=== PATIENT | male | born 1990 | race Caucasian/White ===

== ENCOUNTER 2018-10-02 04:00 | Emergency (ER) | payer BC ==
[2018-10-02 04:24] VITALS: BP 116/65; PULSE 81; TEMP 98.5; BMI 30.9
[2018-10-02] MEDS ORDERED: MAG HYDROX/AL HYDROX/SIMETH 30 ML UNIT-DOSE CUP PO ONE (05:09)
[2018-10-02] MEDS ORDERED: ONDANSETRON *ODT* 4 MG TABLET SL ONE (05:09)
[2018-10-02] MEDS ORDERED: ONDANSETRON *ODT* 4 MG TABLET ONE (05:11)
--- NOTE | 2018-10-02 05:11 | PDOC ---
Attending Attestation - Resident Resident Name: Papito Baeza - ED Attending Attestation I have performed the following: The case was reviewed & discussed with the resident, I agree w/resident's findings & plan - HPI HPI: 10/02/18 06:01 27-year-old male with epigastric burning, currently with an outpatient appointment for endoscopy with GI 10/02/18 06:01 - Physicial Exam PE: 10/02/18 06:02 Patient eloped prior to physical exam - Medical Decision Making 10/02/18 06:02 27-year-old male with epigastric burning and pain Labs are unremarkable Patient eloped prior to my [id number] evaluation, he did not announce leading to staff
[2018-10-02] MEDS ORDERED: MAG HYDROX/AL HYDROX/SIMETH 30 ML UNIT-DOSE CUP ONE (05:12)
[2018-10-02 05:18] LABS: HEMATOCRIT 44.9 % (35.4-49); HEMOGLOBIN 15.3 GM/dL (11.7-16.9); MCH 30.4 pg (25.7-33.7); MEAN CELL VOLUME 89.3 fl (80-96); MEAN PLT VOLUME 8.8 fl (7.5-11.1); PLATELET COUNT 179 K/MM3 (134-434); RBC 5.02 M/mm3 (4.00-5.60); RDW 12.3 % (11.9-15.9)
--- NOTE | 2018-10-02 05:31 | PDOC ---
History of Present Illness - General Chief Complaint: Chest Pain Stated Complaint: CHEST PAIN,SHORTNESS OF BREATH, Time Seen by Provider: 10/02/18 05:00 History Source: Patient Exam Limitations: No Limitations - History of Present Illness Initial Comments: 10/02/18 05:31 Patient is a 27M with history of appendectomy here today complaining of a burning pain to his chest for the past two weeks. Patient complains of an associated nausea. Denies shortness of breath. Denies fevers, chills, vomiting. Denies diarrhea, constipation. Patient is followed up by outpatient GI. Has tried diet changes, zantac, 2 days of prilosec. Has outpatient endoscopy already scheduled. Denies NSAIDs, alcohol, smoking. Past History - Past Medical History Allergies/Adverse Reactions: Allergies Allergy/AdvReac Type Severity Reaction Status Date / Time Sulfa (Sulfonamide Allergy Verified 10/02/18 04:16 Antibiotics) Home Medications: Ambulatory Orders NK [No Known Home Medication] 11/15/14 COPD: No - Surgical History Appendectomy: Yes - Immunization History Immunization Up to Date: Yes - Suicide/Smoking/Psychosocial Hx Smoking History: Never smoked Have you smoked in the past 12 months: No If you are a former smoker, when did you quit?: 2 weeks ago Information on smoking cessation initiated: No Hx Alcohol Use: No Drug/Substance Use Hx: No Substance Use Type: None Review of Systems - Review of Systems Able to Perform ROS?: Yes Comments:: 10/02/18 05:54 GENERAL/CONSTITUTIONAL: No fever or chills. No weakness. HEAD, EYES, EARS, NOSE AND THROAT: No change in vision. No sore throat. CARDIOVASCULAR: +chest pain no shortness of breath RESPIRATORY: No cough, wheezing, or hemoptysis. GASTROINTESTINAL: +nausea, no vomiting, diarrhea or constipation. GENITOURINARY: No dysuria, frequency, or change in urination. MUSCULOSKELETAL: No joint or muscle swelling or pain. No neck or back pain. SKIN: No rash NEUROLOGIC: No headache, vertigo, loss of consciousness, or change in strength/ sensation. ALLERGIC/IMMUNOLOGIC: No hives or skin allergy. *Physical Exam - Vital Signs Last Vital Signs Temp Pulse Resp BP Pulse Ox 98.5 F 81 20 116/65 99 10/02/18 04:17 10/02/18 04:17 10/02/18 04:17 10/02/18 04:17 10/02/18 04:17 - Physical Exam Comments: 10/02/18 05:55 GENERAL: Awake, alert, and fully oriented, in no acute distress HEAD: No signs of trauma, normocephalic, atraumatic EYES: PERRLA, EOMI, sclera anicteric, conjunctiva clear ENT: Auricles normal inspection, hearing grossly normal, nares patent, oropharynx clear without exudates. Moist mucosa NECK: Normal ROM, supple, no lymphadenopathy, JVD, or masses LUNGS: No distress, speaks full sentences, clear to auscultation bilaterally HEART: Regular rate and rhythm, normal S1 and S2, no murmurs, rubs or gallops, peripheral pulses normal and equal bilaterally. ABDOMEN: Soft, nontender, normoactive bowel sounds. No guarding, no rebound. No masses EXTREMITIES: Normal inspection, Normal range of motion, no edema. No clubbing or cyanosis. NEUROLOGICAL: Cranial nerves II through XII grossly intact. Normal speech, normal gait, no focal sensorimotor deficits SKIN: Warm, Dry, normal turgor, no rashes or lesions noted. ED Treatment Course - LABORATORY CBC & Chemistry Diagram: 10/02/18 05:14 10/02/18 05:14 - ADDITIONAL ORDERS Additional order review: 10/02/18 05:14 RBC 5.02 MCV 89.3 MCHC 34.0 RDW 12.3 MPV 8.8 - Medications Given in the ED: ED Medications Discontinued Medications Generic Name Dose Route Start Last Admin Trade Name Freq PRN Reason Stop Dose Admin Al Hydroxide/Mg Hydroxide 30 ml 10/02/18 05:09 10/02/18 05:14 Mylanta Oral Suspension - PO 10/02/18 05:10 30 ml ONCE ONE Administration Ondansetron HCl 8 mg 10/02/18 05:09 10/02/18 05:14 Zofran Odt - SL 10/02/18 05:10 8 mg ONCE ONE Administration Medical Decision Making - Medical Decision Making 10/02/18 05:55 Patient is 27M with no significant medical history here today with pain consistent with GERD. Vitals normal and stable. Nontender exam. Has appropriate follow up already. Basic labs drawn. Will treat with maalox and zofran. Labs normal. EKG shows NSR, no st elevations/depressions. Normal axis. Normal intervals. No significant t wave abnormalities. Patient eloped before reassessment. 10/02/18 06:01 *DC/Admit/Observation/Transfer Diagnosis at time of Disposition: GERD (gastroesophageal reflux disease) - Discharge Dispostion Disposition: ELOPED Condition at time of disposition: Stable Decision to Admit order: No - Referrals - Patient Instructions - Post Discharge Activity
[2018-10-02 05:47] LABS: ALK PHOS 48 U/L (45-117); ANION GAP 9 MMOL/L (8-16); BILIRUBIN,TOTAL 0.3 mg/dL (0.2-1); BLOOD UREA NITROGEN 17 mg/dL (7-18); CALCIUM 8.8 mg/dL (8.5-10.1); CHLORIDE 108 mmol/L (98-107); CO2 26 mmol/L (21-32); GLUCOSE,RANDOM 85 mg/dL (74-106); POTASSIUM 3.7 mmol/L (3.5-5.1); SGOT/AST 16 U/L (15-37); SGPT/ALT 25 U/L (13-61); SODIUM 143 mmol/L (136-145); TOT PROT 6.5 g/dl (6.4-8.2)
--- NOTE | 2018-10-02 11:46 | EKG ---
Test Reason : Blood Pressure : / mmHG Vent. Rate : 075 BPM Atrial Rate : 075 BPM P-R Int : 176 ms QRS Dur : 084 ms QT Int : 428 ms P-R-T Axes : 053 026 042 degrees QTc Int : 477 ms NORMAL SINUS RHYTHM NORMAL ECG WHEN COMPARED WITH ECG OF 24-MAY-2017 22:04, NO SIGNIFICANT CHANGE WAS FOUND Confirmed by ZAC BILLINGS MD ([id number]) on 10/02/2018 11:46:29 AM Referred By: Confirmed By:ZAC BILLINGS MD
== END 2018-10-02 06:05 | disposition left against medical advice (07) ==
LOC: JER 04:00
DX: K21.9 Gastro-esophageal reflux disease without esophagitis (principal)
CPT/HCPCS: 36415; 80053; 85027; 93005; 93010; 99282-25; Q0162

== ENCOUNTER 2020-09-24 01:15 | Emergency (ER) | payer OTHER ==
[2020-09-24 01:23] VITALS: BP 124/72; PULSE 81; TEMP 99.3; BMI 30.9
[2020-09-24] MEDS ORDERED: HIV POST EXPOSURE PROPHYLAXIS KIT NR ONE (01:27)
[2020-09-24] MEDS ORDERED: HIV POST EXPOSURE PROPHYLAXIS KIT PO ONE (01:32)
== END 2020-09-24 01:52 | disposition home or self-care (01) ==
LOC: FER 01:15
DX: Z77.21 Contact with and (suspected) exposure to potentially hazardous body fluids (principal)
CPT/HCPCS: 99283-25

== ENCOUNTER 2021-01-11 22:28 | Emergency (ER) | payer OTHER ==
[2021-01-11 22:42] VITALS: BP 102/61; PULSE 65; TEMP 99.6; BMI 65.4
== END 2021-01-12 01:08 | disposition home or self-care (01) ==
LOC: FER 22:28
DX: S83.91XA Sprain of unspecified site of right knee, initial encounter (principal); S80.01XA Contusion of right knee, initial encounter; S90.31XA Contusion of right foot, initial encounter
CPT/HCPCS: 73562-TC-RT-FY; 73630-TC-RT-FY; 99284-25

== ENCOUNTER 2021-06-22 22:52 | Emergency (ER) | payer OTHER ==
[2021-06-22 23:01] VITALS: BP 122/82; PULSE 74; TEMP 99; BMI 29.7
[2021-06-22] MEDS ORDERED: ACETAMINOPHEN 500 MG TABLET (FP) PO ONE (23:25)
[2021-06-22] MEDS ORDERED: ACETAMINOPHEN 500 MG TABLET (FP) ONE (23:27)
== END 2021-06-22 23:33 | disposition home or self-care (01) ==
LOC: FER 22:52
DX: S60.222A Contusion of left hand, initial encounter (principal); W22.8XXA Striking against or struck by other objects, initial encounter
CPT/HCPCS: 73130-TC-LT-FY; 99283-25

== ENCOUNTER 2022-02-11 20:00 | Emergency (ER) | payer OTHER ==
[2022-02-11 21:24] VITALS: BP 102/63; PULSE 64; RESP 16; TEMP 98.5; BMI 25.7
[2022-02-11] MEDS ORDERED: IBUPROFEN 400 MG TABLET (FP) PO ONE ×2 (22:37→22:41)
== END 2022-02-11 22:53 | disposition home or self-care (01) ==
LOC: FER 20:00
PROC: 2W3CX1Z Immobilization of Right Lower Arm using Splint (ICD-10-PCS; principal; 2022-02-11)
DX: S69.91XA Unspecified injury of right wrist, hand and finger(s), initial encounter (principal); Y35.811A Legal intervention involving manhandling, law enforcement official injured, initial encounter
CPT/HCPCS: 73130-TC-RT-FY; 99283-25

== ENCOUNTER 2022-02-20 19:49 | Emergency (ER) | payer OTHER ==
[2022-02-20 19:55] VITALS: BP 122/72; PULSE 77; RESP 16; TEMP 98.6; BMI 26.4
== END 2022-02-20 20:03 | disposition home or self-care (01) ==
LOC: FER 19:49
DX: Z77.21 Contact with and (suspected) exposure to potentially hazardous body fluids (principal)
CPT/HCPCS: 99283-25

== ENCOUNTER 2022-09-05 15:53 | Emergency (ER) | payer OTHER ==
[2022-09-05 16:05] VITALS: BP 117/61; PULSE 75; RESP 18; TEMP 98.5; BMI 27.7
[2022-09-05] MEDS ORDERED: AMOX TR/POT CLAV 875MG/125MG TABLETS (FP) PO ONE (16:13)
[2022-09-05] MEDS ORDERED: TETANUS AND DIPHTHERIA TOXOID 0.5 ML DISP.SYRIN IM ONE (16:18)
[2022-09-05] MEDS ORDERED: DIPHTH,PERTUSS(ACELL),TET 0.5 ML DISP.SYRIN IM ONE ×2 (16:23→16:33)
[2022-09-05] MEDS ORDERED: AMOX TR/POT CLAV 875MG/125MG TABLETS (FP) ONE (16:32)
== END 2022-09-05 16:43 | disposition home or self-care (01) ==
LOC: FER 15:53
PROC: 3E0234Z Introduction of Serum, Toxoid and Vaccine into Muscle, Percutaneous Approach (ICD-10-PCS; principal; 2022-09-05)
DX: Z77.21 Contact with and (suspected) exposure to potentially hazardous body fluids (principal)
CPT/HCPCS: 73130-TC-RT-FY; 90715; 99284-25

== ENCOUNTER 2022-12-20 21:22 | Emergency (ER) | payer OTHER ==
[2022-12-20 21:34] VITALS: BP 114/62; PULSE 73; RESP 16; TEMP 99; BMI 27.7
== END 2022-12-20 23:30 | disposition home or self-care (01) ==
LOC: FER 21:22
DX: S60.222A Contusion of left hand, initial encounter (principal); M25.532 Pain in left wrist; M79.642 Pain in left hand; W01.198A Fall on same level from slipping, tripping and stumbling with subsequent striking against other object, initial encounter; Y93.89 Activity, other specified; Y92.009 Unspecified place in unspecified non-institutional (private) residence as the place of occurrence of the external cause
CPT/HCPCS: 73110-TC-LT-FY; 73130-TC-LT-FY; 99283-25